=== PATIENT | female | born 1980 | race Caucasian/White ===

== ENCOUNTER 2024-11-09 19:22 | Emergency (ER) | payer BC ==
[2024-11-09 19:33] VITALS: RESP 18; O2SAT 99
--- NOTE | 2024-11-09 20:23 | ERPHSYRPT ---
- History of Present Illness Time Seen by Provider: 11/09/24 19:23 Source: patient Exam Limitations: no limitations Patient Subjective Stated Complaint: c/o left arm pain Triage Nursing Assessment: patient brought self to ED with c/o left arm pain. patient states that last night she was trying to get off her sons bed and heard her arm pop. denied pain at this time but states it feels like her arm is asleep and tingly. states pain only comes on when she moves ir or hits it. no deformities noted, no brusing present, distal pulses normal, vitals wnl, gait steady Physician History: 44 years old left-handed dominant female presented in the ER with complaints of left mid forearm pain since last night when she tried to get off of her son's bed while putting pressure on her hand/wrist and felt a popping sensation in the forearm. Patient reports it causes moderate intensity sharp pain with movements and making it tends and better with being still. Also reports some tingling sensation distally. No weakness distally. No swelling. Allergies/Adverse Reactions: No Known Drug Allergies Allergy (Verified 11/09/24 19:25) Home Medications: Levothyroxine Sodium 75 mcg PO DAILY 11/09/24 [History] Hx Tetanus, Diphtheria Vaccination/Date Given: No Hx Influenza Vaccination/Date Given: Yes Hx Pneumococcal Vaccination/Date Given: No Travel Risk - International Travel Have you traveled outside of the country in past 3 weeks: No - Emerging Infectious Disease Are you exhibiting symptoms associated with any current EIDs: No - Review of Systems Constitutional: No Symptoms Respiratory: No Symptoms Cardiac: No Symptoms Abdominal/Gastrointestinal: No Symptoms Musculoskeletal: Injury, Myalgias Skin: No Symptoms Neurological: No Symptoms - Past Medical History Pertinent Past Medical History: No Neurological History: No Pertinent History Cardiac History: No Pertinent History Respiratory History: Other Endocrine Medical History: Hypothyroidism Musculoskeletal History: No Pertinent History Other Medical History: COVID-19, x2 - Past Surgical History Past Surgical History: Yes Female Surgical History: Section - Female History Hx Last Menstrual Period: 3 weeks ago Hx Now: No - Social History Smoking Status: Never smoker Exposure to second hand smoke: No Drug Use: none - Social Determinants of Health Will the patient participate in the screening: Yes Do you worry about a steady place to live?: No Do you have any problems with any of the following?: No known problems In the past 12 months,have you had to go without utilities?: No Transportation Issues: No Has anyone in your support network made you feel unsafe?: No Have you or anyone in your house had to go w/o enough food: No - Nursing Vital Signs Nursing Vital Signs: Initial Vital Signs Pulse Rate 73 11/09/24 19:26 Respiratory Rate 18 11/09/24 19:26 Blood Pressure 139/58 11/09/24 19:26 O2 Sat by Pulse Oximetry 99 11/09/24 19:26 Pain Scale Pain Intensity 6 - Physical Exam General Appearance: no apparent distress Neck Exam: normal inspection, full range of motion Cardiovascular/Respiratory Exam: normal breath sounds, regular rate/rhythm Elbow/Forearm Exam: normal inspection, normal ROM, pain, soft tissue tenderness (Left brachial radialis area), No bone tenderness, No limited ROM, No swelling Wrist Exam: normal inspection, non-tender, no evidence of injury Neuro/Tendon Exam: normal sensation, normal motor functions, normal tendon functions Mental Status Exam: alert, oriented x 3, cooperative Skin Exam: normal color SpO2 Interpretation: normal SpO2: 99 O2 Delivery: Room Air Ordered Tests: Active Orders 24 hr Category Date Time Status FOREARM Stat Exams 11/09/24 19:44 Ordered - Progress Progress: unchanged Progress Note: 11/09/24 20:20 Differential diagnosis: Arm strain, elbow sprain, brachial radialis/forearm muscle strain or sprain 44-year-old [id number] is evaluated in the ER for left forearm pain after she tried to get off of her son's pet with pressure on the hands/wrist and felt a popping sensation in the brachioradialis area. Patient has mild tenderness in the area but no swelling. Intact distal neurovascular. Patient has subjective feeling of tingling sensation distally. I have obtained forearm x-rays which are negative for acute fracture dislocation interpreted by me, pending official read. I believe patient has muscle strain and less likely it could be tendon tear with swelling around the nerve causing some tingling sensation. Recommended Alec wrap, Tylenol ibuprofen as needed and outpatient orthopedics follow-up. Discussed signs symptoms of worsening needing return to ER which she seemed understanding. Complexity of problems addressed: Moderate acute Complexity of data reviewed/analyzed: Moderate Risk of complication: Low to moderate Counseled pt/family regarding: diagnosis, need for follow-up, rad results Medical Desision Making - Diagnostic Testing Diagnostic test were ordered, analyzed, and reviewed by me: Yes Radiological Interpretation: Interpreted by me - Risk of complications The pt has a mod risk of morbidity or mortality based on: Need for prescription drug management - Departure Departure Disposition: Home Clinical Impression: Strain of forearm, left Condition: Stable Critical Care Time: No Referrals: TIKI EDWARD MD [Primary Care Provider, [facility]] - Follow up with PCP 1 day ALDA SHIN MD [ACTIVE STAFF, ORTHOPEDICS] - Follow up/PCP as directed Referral Note: Call tomorrow for reevaluation appointment Instructions: Muscle strain - ED discharge instructions Additional Instructions: Intermittent ice application. Tylenol/ibuprofen as needed. Avoid exertional activities. Follow-up with orthopedics for reevaluation. Return to ER for worsening pain or if develop swelling, weakness or numbness distally etc. Prescriptions: Ibuprofen 600 mg PO Q6HPRN PRN 10 Days #20 tablet PRN Reason: Pain
[2024-11-09 20:32] VITALS: BP 117/65; PULSE 68
--- NOTE | 2024-11-10 08:31 | XRAY ---
Indication: Pain following injury. Comparison: None 2 view left forearm obtained. No bony, articular, or soft tissue abnormalities.
== END 2024-11-09 20:30 | disposition home or self-care (01) ==
LOC: ED 19:22
DX: S56.912A Strain of unspecified muscles, fascia and tendons at forearm level, left arm, initial encounter (principal); X50.0XXA Overexertion from strenuous movement or load, initial encounter; Y92.003 Bedroom of unspecified non-institutional (private) residence as the place of occurrence of the external cause; Z79.899 Other long term (current) drug therapy